=== PATIENT | female | born 1970 ===

== ENCOUNTER 2017-05-15 11:53 | Emergency (ER) | payer OTHER ==
[2017-05-15 11:53] VITALS: BMI 28.8
[2017-05-15 11:57] VITALS: BP 140/80; PULSE 76; RESP 16; TEMP 98; O2SAT 98
--- NOTE | 2017-05-15 12:51 | ED PDOC ---
HPI: Female Pain Time Seen by Provider: 05/15/17 12:24 Chief Complaint (Nursing): Female Genitourinary Chief Complaint (Provider): Female Genitourinary History Per: Patient History/Exam Limitations: no limitations Onset/Duration Of Symptoms: Days (x 4) Current Symptoms Are (Timing): Still Present Additional Complaint(s): Hamida is a 46 year old female who presents to the emergency department complaining of dysuria for the past 4 days. Denies any nausea, vomiting, or back pain. PMD: Provider TBD Past Medical History Reviewed: Historical Data, Nursing Documentation, Vital Signs Vital Signs: Last Vital Signs Temp 98.0 F 05/15/17 11:56 Pulse 76 05/15/17 11:56 Resp 16 05/15/17 11:56 BP 140/80 05/15/17 11:56 Pulse Ox 98 05/15/17 11:56 - Medical History PMH: No Chronic Diseases - Surgical History Surgical History: (x 1) - Family History Family History: States: Unknown Family Hx - Home Medications Home Medications: Ambulatory Orders Medication Instructions Recorded Ciprofloxacin/Ciprofloxa HCl 500 mg PO BID #14 tab 05/20/15 [Ciprofloxacin] Meclizine [Meclizine*] 25 mg PO Q6 PRN #20 tab 05/20/15 Albuterol Sulfate [Proair Hfa] 0.09 mg IH Q6H PRN #2 inh 03/26/16 Azithromycin [Zithromax] 250 mg PO DAILY 5 Days tab 03/26/16 Benzonatate [Tessalon Perles] 100 mg PO BID PRN 5 Days sgl 03/26/16 Ibuprofen [Motrin] 600 mg PO TID 7 Days tab 03/26/16 predniSONE [predniSONE Tab] 20 mg PO BID 5 Days tab 03/26/16 Ciprofloxacin [Cipro] 500 mg PO BID #10 tab 05/15/17 - Allergies Allergies/Adverse Reactions: Allergies Allergy/AdvReac Type Severity Reaction Status Date / Time No Known Allergies Allergy Verified 03/26/16 09:32 Review of Systems ROS Statement: Except As Marked, All Systems Reviewed And Found Negative Gastrointestinal: Negative for: Nausea, Vomiting Genitourinary Female: Positive for: Dysuria Musculoskeletal: Negative for: Back Pain Physical Exam - Reviewed Nursing Documentation Reviewed: Yes Vital Signs Reviewed: Yes - Physical Exam Appears: Positive for: Well, Non-toxic, No Acute Distress Head Exam: Positive for: ATRAUMATIC, NORMAL INSPECTION, NORMOCEPHALIC Skin: Positive for: Normal Color, Warm, DRY Eye Exam: Positive for: Normal appearance ENT: Positive for: Normal ENT Inspection Neck: Positive for: Normal, Painless ROM Cardiovascular/Chest: Positive for: Regular Rate, Rhythm Respiratory: Positive for: Normal Breath Sounds. Negative for: Accessory Muscle Use, Respiratory Distress Gastrointestinal/Abdominal: Positive for: Normal Exam, Bowel Sounds, Soft. Negative for: Tenderness Back: Positive for: Normal Inspection. Negative for: L CVA Tenderness, R CVA Tenderness Extremity: Positive for: Normal ROM Neurologic/Psych: Positive for: Alert, Oriented - ECG O2 Sat by Pulse Oximetry: 98 (RA) Pulse Ox Interpretation: Normal Medical Decision Making Medical Decision Making: Time: 12:25 Plan: - ED Urine Dip Stick - ED Urine Scribe Attestation: Documented by Scott Moncada, acting as a scribe for Toma Angeles PA-C Provider Scribe Attestation: All medical record entries made by the Scribe were at my direction and personally dictated by me. I have reviewed the chart and agree that the record accurately reflects my personal performance of the history, physical exam, medical decision making, and the department course for this patient. I have also personally directed, reviewed, and agree with the discharge instructions and disposition. Disposition - Clinical Impression Clinical Impression: UTI (urinary tract infection) - Patient ED Disposition Is Patient to be Admitted: No Counseled Patient/Family Regarding: Diagnosis, Need For Followup, Rx Given - Disposition Disposition: Routine/Home Disposition Time: 13:11 Condition: GOOD Prescriptions: Ciprofloxacin [Cipro] 500 mg PO BID #10 tab Instructions: Urinary Tract Infection in Women (ED) Forms: [employer] ([place]) Print Language: [place]
== END 2017-05-15 13:00 | disposition home or self-care (01) ==
LOC: H.ER 11:53
DX: N39.0 Urinary tract infection, site not specified (principal)